=== PATIENT | male | born 1960 | race Caucasian/White ===

== ENCOUNTER 2024-05-19 19:39 | Inpatient (IN) | payer OTHER, SELFPAY ==
[2024-05-19] VITALS (7 sets, daily range): BP systolic 122–158; BP diastolic 91–117; BMI 29.0
--- NOTE | 2024-05-19 17:18 | ED.GENMED ---
History of Present Illness
General
Chief Complaint: Weakness
Source: patient
Time Seen by Provider: 05/19/24 17:04
History of Present Illness
History of Present Illness:
63-year-old male with no documented past medical history presenting the emergency department for evaluation at the request of primary care provider after patient had seen primary care yesterday noting that for the last few weeks he has had a
'terrible taste in his mouth' lower extremity edema, exertional dyspnea and decreased p.o. intake to both solids and liquids. Patient states that he had abnormal renal function despite not having history of this previously. who presented to
the ER with the patient also notes that patient had an elevated hemoglobin A1c of 9.6. Patient notes that he has not been experiencing polyuria or polydipsia due to the abnormal taste in his mouth. He does note about 3 or 4 weeks ago having
URI-like symptoms which all resolved after taking an antibiotic for 10 days. Of note, patient states that he takes Motrin/ibuprofen multiple times per week due to chronic left knee pain. Social history otherwise noncontributory.
Past History
Past History
ED Past Medical History: None
ED Past Surgical History: None
Social History
Tobacco: Non-smoker
Alcohol: None
Drug: None
Personal:
Living: with family
Review of Systems
Review of Systems
All Other Systems: ROS reviewed and negative except as documented in HPI and ROS
Phy Exam
Physical Exam
Physical Exam:
GENERAL: Alert , in no apparent distress
HEAD: NCAT
EYE: clear conjunctiva
NECK: Supple
ENT: o/p clr, mmm.
CARDIAC: Tachycardic rate and rhythm. no murmur .
LUNGS: Clear breath sounds bilaterally, no acute respiratory distress, no wheezes/rales/rhonchi
ABDOMEN: Soft, without focal tenderness, no r/g, no cvat
NEUROLOGICAL: Alert and oriented
SKIN: Warm and dry, skin intact.
MUSCULOSKELETAL: significant b/l ankle edema (L>R is baseline per patient), well perfused.
PSYCH: Normal and appropriate interaction.
Scores
Heart Failure Risk
Heart Failure Risk Score: Not Applicable
Heart Score for Chest Pain Patients
STEMI patient?: Not applicable
Withdrawal Assessment of Alcohol
Withdrawal Assessment Completed?: Not applicable
Course
Orders/Labs/Results
Orders:
Orders
05/19/24 17:16
Electrocardiogram (*1) Urgent
Reason for Study: Shortness of Breath
EKG- Treatment ONCE
05/19/24 17:17
CR Chest - 2 Views Urgent
Comment:
Reason For Exam: SOB
05/19/24 17:27
Complete Blood Count/With Diff Urgent
Comprehensive Metabolic Panel Urgent
Magnesium Urgent
NT-proBNP Urgent
Troponin I Urgent
05/19/24 17:41
Protein/Creat Ratio (Random) Urgent
Date Specimen was Collected: 05/19/24
Time Specimen was Collected: 17:38
Comment: ADD ON
Urinalysis Reflex To Culture Urgent
Date Specimen was Collected: 05/19/24
Time Specimen was Collected: 17:38
Urine Microscopic Reflex Cult Urgent
Urine Culture Urgent
MARY JO Source: U
Specimen Description:
Date Specimen was Collected: 05/19/24
Time Specimen was Collected: 17:38
05/19/24 18:18
Furosemide [Lasix] 40 mg IV NOW STA
05/19/24 18:42
Admit/Transfer Patient As Directed
Co-Sign Provider:
Level of Care: Inpatient admission
Assign to:: Telemetry
Physician / Group: john
Diagnosis: new onset CHF
Reason for Telemetry: Acute Heart Failure
Date to Stop Telemetry: 05/22/24
Time to Stop Telemetry: 11:00
Reason for Hospitalization: CHF
Expected length of stay greater than two midnights?: Yes
ELOS- Estimated Length of Stay in days: 3
I certify the patient meets the requirements for IP care: Yes
PRN Pain Medication Management As Directed
May give lesser potent ordered pain med per pt: Yes
preference::
Protocol:: Medication orders for pain may be administered in a
manner that supports deferring to patient preference
when the pt is:
- Requesting an ordered lesser potent pain medication.
Least to most potent pain medications are defined
as: acetaminophen < NSAID < tramadol < opioids
(morphine, oxycodone, hydromorphone).
- Requesting a lesser dose of the same medication IF
ORDERED.
- Requesting a less intrusive route of administration
if both routes are prescribed by the provider (PO <
IV).
05/19/24 18:43
Code Status As Directed
Resuscitation Status: Full Code
05/19/24 20:22
Dextrose 50%-Water [Dextrose 50% Syringe] 12.5 grams IV [id number] PRN
Glucagon [GlucaGen] 1 mg IM PRN PRN
Heparin 5,000 units SC Q12
05/19/24 20:22
Echo 2D MMode Color/Doppler Routine
Reason for Study: heart failure
CARDIOLOGY CONSULT Routine
Consulting Provider: Annalee Bright
Was physician already notified: Yes
Diabetes Management by Nurse Practitioner Routine
Consulting Provider: Opal Ortega
Was provider already notified?: Yes
HF DIETARY CONSULT Routine
HF EDUCATOR CONSULT Routine
Comment:
Activity As Directed
Activity Level: As Tolerated
Bedside Glucose Monitoring As Directed
Frequency: AC&HS
Additional Instructions:: Change to q6h if pt on TPN, tube feeding or not eating
Intake/ Output As Directed
Frequency: Per unit guidelines
Patient Education As Directed
Type: CHF folder
Comment: give on admission. Document in Interdisciplinary Education record
Sleep Apnea Assessment by RN As Directed
Comment:
Physician Instructions:
Vital Signs As Directed
Frequency: Other
Additional Instructions:: Q12 or per unit guidelines if more frequent.
Weight As Directed
Frequency: Daily
Type of Scale: Standing Scale
Comment: Daily morning weight. If unable to stand, use balanced bed scale.
Weight As Directed
Frequency: Once
Type of Scale: Standing Scale
Comment: Upon Admission. If unable to stand, use balanced bed scale.
Pulse Ox/cont/shift [RESP] Routine
Quantity: 1
Special Instructions: Daily pulse oximetry at rest. If greater than 92% at rest also obtain pulse oximetry
while ambulating as tolerated.
DX Deep Vein Thrombosis Video Routine
05/19/24 23:30
Troponin I Q6H
Comment: at admission & every 6 hours x 2 (3 total), ECG to be done with each level
05/20/24 05:30
Troponin I Q6H
Comment: at admission & every 6 hours x 2 (3 total), ECG to be done with each level
05/20/24 Breakfast
1800 calorie (15 carb) Diabetic
Fluid Restriction: 1200 mL/day (40 oz)
Diabetic Diet: Cholesterol Lowering
Basic Metabolic Panel IN AM
Cardiovascular Evaluation IN AM
Glycohemoglobin (HgbA1c) IN AM
Magnesium IN AM
TSH Reflex To Free T4 IN AM
05/20/24 07:30
Insulin Aspart Corrective Low [Novolog Flexpen-Low Resistance] See Protocol SC AC
05/20/24 08:00
Furosemide [Lasix] 40 mg IV BID AT 0800,1600
05/21/24 06:00
Basic Metabolic Panel IN AM
05/22/24 06:00
Basic Metabolic Panel IN AM
05/22/24 11:00
DC Protocol for Telemetry ONCE
Abnormal Lab Results
05/19/24 05/19/24
17:27 17:41
MCH 26.5 L pg
(27.0-31.0)
MPV 10.9 H fL
(7.4-10.4)
Lymphocytes % 16.1 L %
(20.5-51.1)
Carbon Dioxide 19 L mmol/L
(22-30)
Creatinine 1.8 H mg/dL
(0.7-1.3)
Glucose 172 H mg/dl
(70-99)
Total Bilirubin 2.6 H mg/dl
(0.2-1.3)
Troponin I 0.036 H* ng/ml
Urine Ketones 3+ A
(Negative)
Ur Occult Blood Reflex 4+ A
(Negative)
Urine RBC 30-40 A /HPF
(0-2)
Urine Bacteria (Reflex) Moderate A
(Negative)
Urine Albumin (Reflex) 3+ A
(Neg - Trace)
05/19/24 17:27
05/19/24 17:27
Vital Signs
Initial and Last Documented VS:
Initial Vital Signs
Temp Pulse Resp BP Pulse Ox
97.6 F 111 20 158/117 97
05/19/24 16:53 05/19/24 16:53 05/19/24 16:53 05/19/24 16:53 05/19/24 16:53
Last Documented Vital Signs
Temp Pulse Resp BP Pulse Ox
97.9 F 108 18 140/100 98
05/19/24 21:01 05/19/24 21:01 05/19/24 21:01 05/19/24 21:01 05/19/24 21:01
MDM/Problems Addressed
Differential Diagnosis Includes:
uncontrolled DM, uncontrolled HTN, SLOANE/CKD, medication side effect with NSAIDs, CHF
MDM/Problems Addressed:
63-year-old male presenting to the ER for evaluation at request of primary care provider after performing lab work yesterday which showed a creatinine of 2.02 and a hemoglobin A1c of 9.6 with patient noting over the last few weeks he has had
gradually worsening edema to his bilateral lower extremities and some exertional dyspnea. Patient takes frequent NSAIDs as well as based off of presentation likely has untreated hypertension and based off of the hemoglobin A1c untreated diabetes.
Will obtain further labs, urine, EKG. Anticipate need for admission for consultation with specialists. Workup pending.
*Radiology
Radiology exam reviewed: radiology read reviewed
*Pulse Oximetry
Patient hypoxic: no
*Cabinet Installer Interpretation
Rate: normal
Rhythm: sinus
*Critical Care Note
Total Time (30-74mins, 75-104mins- exclusive of procedures): Not Applicable
Patient Management
Discussion with other providers: Hospitalist
Escalation/DeEscalation of care consider admission/obs:
Hospitalist team to admit for new onset kidney dysfunction, hypertension and CHF. 40 mg Lasix IV ordered for diuresis.
ED Attending Note
-
Portions of this chart may have been created with voice recognition software.� Occasional wrong word or��sound alike� substitutions may have occurred due to the inherent limitations of voice recognition software.
Discharge Plan
Departure
Patient Disposition: Admit
Date of Disposition: 05/19/24
Time of Disposition: 18:17
Presentation/result/management discussed w/ accepting MD/DO: Hospitalist
Discharge Problem:
CHF (congestive heart failure), Kidney dysfunction, Hypertension, Elevated troponin
Interventions
Interventions:
*Risk Screen - Suicide Last Done: 05/19/24 20:25
*General Assessment Last Done: 05/19/24 17:48
*Neglect/Abuse Screening Last Done: 05/19/24 17:01
*ED- Fall Risk Assessment Last Done: 05/19/24 20:16
*ED COVID-19 Vaccine History Last Done: 05/19/24 20:25
*Nursing Disposition Last Done: 05/19/24 20:16
ED- Cardiac Assessment Last Done: 05/19/24 17:48
ED- Neurological Assessment Last Done: 05/19/24 17:48
ED- Pulmonary Assessment Last Done: 05/19/24 17:48
Discharge Date and Time
Discharge Date/Time: 05/19/24 20:17
[2024-05-19 17:44] LABS: % Basophils 0.6 % (0-2); % Eosinophils 4.5 % (0-6); % Immature Granulocytes 0.3 % (0-0.5); % Lymphocytes 16.1 % (20.5-51.1); % Monocytes 7.6 % (1.7-9.3); % Neutrophils 70.9 % (42.2-75.2); Absolute Basophils 0.1 10^3/uL (0-0.2); Absolute Eosinophils 0.4 10^3/uL (0-0.7); Absolute Lymphocytes 1.3 10^3/uL (1.2-3.4); Absolute Monocytes 0.6 10^3/uL (0.1-0.6); Absolute Neutrophils 5.5 10^3/uL (1.4-6.5); Hematocrit 46.9 % (39.0-52.0); Hemoglobin 15.5 g/dL (13.0-18.0); Mean Corpuscular Hgb 26.5 pg (27.0-31.0); Mean Corpuscular Volume 80.3 fL (80.0-94.0); Mean Platelet Volume 10.9 fL (7.4-10.4); Nucleated Red Blood Cells % 0 % (-); Platelet Count 193 10^3/uL (130-400); Red Blood Cell Count 5.84 10^6/uL (4.70-6.10); Red Cell Dist. Width 13.9 % (11.5-14.5); White Blood Cell Count 7.8 10^3/uL (4.8-10.8)
[2024-05-19 17:47] LABS: Urine Albumin 3+ (Neg - Trace); Urine Bilirubin Negative (Negative); Urine Character Clear (Clear); Urine Color Yellow; Urine Glucose Negative (Negative); Urine Ketone 3+ (Negative); Urine Leukocyte Negative (Negative); Urine Nitrite Negative (Negative); Urine Occult Blood 4+ (Negative); Urine Specific Gravity 1.025 (<1.030); Urine Urobilinogen Negative (Neg - 1+)
[2024-05-19 17:59] LABS: Urine Mucus Few
[2024-05-19 18:00] LABS: ALT (SGPT) 18 U/L (0-50); AST (SGOT) 25 U/L (17-59); Alkaline Phosphatase 62 U/L (38-126); Blood Urea Nitrogen 20 mg/dl (9-20); Calcium 9.6 mg/dl (8.4-10.2); Carbon Dioxide 19 mmol/L (22-30); Chloride 106 mmol/L (98-107); Glucose 172 mg/dl (70-99); Potassium 4.4 mmol/L (3.5-5.1); Sodium 139 mmol/L (135-145); Total Bilirubin 2.6 mg/dl (0.2-1.3); Total Protein 7.2 g/dl (6.3-8.2); eGFR 41.77
[2024-05-19 18:00] LABS: Urine Bacteria Moderate (Negative); Urine White Cell 0-2 /HPF (0-5)
[2024-05-19 18:01] LABS: Urine Red Blood Cell 30-40 /HPF (0-2)
[2024-05-19 18:15] LABS: NT-proBNP 16800 pg/ml; Troponin I 0.036 ng/ml
--- NOTE | 2024-05-19 18:20 | HPS.HSE ---
Family Physician
-
Family Physician: * NONE
Chief Complaint
-
sob
History of Present Illness
63-year-old male with no significant PMH presented with progressive worsening b/l LE edema, poor oral intake, urinary frequency with little output, poor oral intake due to bitterness in the mouth for more than one month. patient lost 26lbs in more
than an month. patient complained of sob which is worse with exertion. denied orthopnea. patient complained of congestion with cough. denied NEWMAN, dizzy or syncope.denied fever, chills. denied abdominal pain,n,v,d. denied dysuria or hematuria. he
contacted the online Physician, who ordered labs for the patient. his blood work as outpatient was abnormal and asked them to go to ER.
upon arrival he was tachycardic, elevated Blood pressure. trop elevated and BNP elevated. patient received a dose of Lasix in Er. admitting for further management.
Medical History
Past Medical History
Past Medical History: Reports None and Other
Past Surgical History: Reports None
Social History
Tobacco: Non-smoker
Alcohol: None
Drug: None
Personal:
Living: With Family
Family History
Family History: Not pertinent
Allergies / Home Medications
Allergies reflects when Allergies were last updated in [facility].
Home Medications with original date entered in [facility]
Allergy/Medication List:
Allergies
Allergy/AdvReac Type Severity Reaction Status Date / Time
shellfish derived Allergy Rash Verified 05/19/24 16:59
Home Medications
fluticasone propionate 50 mcg/actuation nasal spray,suspension 1 spray intranasal DAILYPRN PRN congestion 05/19/24
ibuprofen 125 mg-acetaminophen 250 mg tablet (Advil Dual Action) 1 tab PO Q8HPRN PRN mild pain/inflammation 05/19/24
Review of Systems
-
Constitutional: Reports Weight Loss and Fatigue
EENT: Reports No Symptoms
Respiratory: Reports Cough and Trouble Breathing
Cardiac: Reports No Symptoms
Abdomen/GI: Reports No Symptoms
: Reports Frequency and Other
Musculoskeletal: Reports No Symptoms and Edema (LE edema)
Skin: Reports No Symptoms
Neurological: Reports No Symptoms
Endocrine: Reports No Symptoms
Hematologic/Lymphatic: Reports No Symptoms
Psych: Reports No Symptoms
Physical Exam
Vital Signs
Vital Signs
Temp Pulse Resp BP Pulse Ox
97.6 F 111 20 158/117 97
05/19/24 16:53 05/19/24 16:53 05/19/24 16:53 05/19/24 16:53 05/19/24 16:53
Physical Exam
General: Well Developed, Well Nourished and No Apparent Distress
HEENT: NormoCephalic, Moist mucous membranes and Atraumatic
Respiratory: Clear
Cardiac: S1/S2 and Tachycardia; No Murmur or Rub
GI: Soft, Non Tender, Non Distended and Normal Bowel Sounds; No Organomegaly
Rectal: Deferred by Provider
Musculoskeletal: No Clubbing, No Cyanosis, No Edema and Other (LE edema)
Skin: No Rash
Neuro: AO x 3 and Nonfocal/grossly intact
Laboratory Results
-
05/19/24 17:27
05/19/24 17:27
Laboratory Results
Total Bilirubin 2.6 mg/dl (0.2-1.3) H 05/19/24 17:27
AST 25 U/L (17-59) 05/19/24 17:27
ALT 18 U/L (0-50) 05/19/24 17:27
Alkaline Phosphatase 62 U/L (38-126) 05/19/24 17:27
Troponin I 0.036 ng/ml H* 05/19/24 17:27
Data Reviewed
-
Lab Data: Labs Reviewed by me
Impression/Plan
-
# Bilateral lower extremities edema likely new onset CHF
-BNP 16 800
-IV Lasix continued
-Strict ZANDER
-Daily weight, fluid restriction
-Obtain echocardiogram
-Cardiology consulted
# Elevated troponin likely demand ischemia from CHF
-Trop 0.036
-EKG pending
-Continue to trend Trope
# Acute kidney disease/ non anion gap metabolic acidosis
-cr 1.8, co2 19, anion gap 14
-ctm
# Hypertensive emergency/tachycardia
-BP improved in ER
-obtain EKG
#type 2 DM
-outpatient a1c9.6
-sliding scale
-Farxiga
-CHO diet
#DVT prophylaxis
-heparin sq
#CODE status
-full code
--- NOTE | 2024-05-19 18:27 | W.PN.UPDATE ---
Addendum entered and electronically signed by Maria G Batista MD 05/19/24 19:09:
discussed briefly with Renal, will hold of on Farxiga for now. Patient will need to have established outpatient care to monitor labs closely.
Also discussed Hematuria, Proteinuria - patient will need outpatient Renal Referral
Addendum entered and electronically signed by Maria G Batista MD 05/19/24 18:55:
On exam patient is AAO x 3, conversant. CV: S1, S2, tachycardic. mildly tachypneic, + JVP; Chest: bibasilar rales, LE with 1+ pitting edema equal bilaterally
Original Note:
Update Note
Progress Note Update
This is an addendum to H&P written by TRAUMA SURGEON Tigist Colbert
I saw and examined the patient.
The TRAUMA SURGEON's note was reviewed and I agree with the note.
Comment:
Mr. Matty Monroe is a 63 yo man with hx newly diagnosed DM, essential HTN sent from PCP for further evaluation of lower extremity swelling and shortness of breath on exertion.
Triage VS: T 97.6, P 111, RR 20, BP 158/117, SpO2 97%
LABS: WBC 7.8, HG 15.5, PLT 193, Na 139, K+ 4.4, CO2 19, Cr 1.8, glucose 172, T. Bili 2.6, AST 25, ALT 18, Alk Phos 62, Troponin 0.036, BNP 16,800
Heart Failure unknown EF Acute Exacerbation
-new diagnosis
-Lasix 40mg IV x 1 ordered in the ER
-continue Lasix 40mg IV BID
-TTE
-cardiology consult
-strict I/O, daily weights
Newly Diagnosed DM
-F/U A1c
-patient not yet started on medications
-given HF and CKD will start Farxiga
-DM TRAUMA SURGEON consult
Essential HTN
-not on medications, monitor BP in-house
DVT PPx
76 minutes spent on patient care
[2024-05-19] MEDS: LASIX 40 MG IV (20:02)
[2024-05-19 20:30] LABS: Protein/creatinine Ratio 1.1; Urine Protein 290 mg/dl
[2024-05-19] MEDS: HEPARIN 5000 UNITS SC (20:42)
--- NOTE | 2024-05-19 21:10 | PTCARENOTE ---
Patient arrived from ED via stretcher. AAO x 4. BP elevated at 140/100, tachycardia in low 100s. Tele box # 18 applied--patient sinus tach on the monitor. Patient denies SOB and chest pain. OOB standby with no devices. +2 pitting edema in bilateral
lower extremities. Dual skin check completed--skin CDI. Patient oriented to the room. Family retrieved from waiting room. Bed in lowest position. Call carpenter and personal belongings within reach.
[2024-05-19 21:18] LABS: Glucose - Point of Care 126 mg/dl (70-99)
[2024-05-20 02:51] VITALS: BP 110/77
[2024-05-20 05:24] VITALS: BMI 29.1
[2024-05-20 06:56] LABS: Blood Urea Nitrogen 20 mg/dl (9-20); Calcium 9.6 mg/dl (8.4-10.2); Carbon Dioxide 20 mmol/L (22-30); Chloride 103 mmol/L (98-107); Estimated Creatinine Clearance 39 ml/min; Glucose 115 mg/dl (70-99); HDL Cholesterol 56 mg/dl; LDL Cholesterol, Calculated 108 mg/dl; Potassium 4.2 mmol/L (3.5-5.1); Sodium 139 mmol/L (135-145); Total Cholesterol 182 mg/dl (50-199); Triglyceride 91 mg/dl (10-149); Very Low Density Lipoprotein 18 mg/dl (0-30); eGFR 39.15
--- NOTE | 2024-05-20 07:17 | W.PN.HOSP.TC ---
Today's Communication/Plan
-
Blood Pressure Control
Diuresis
PT eval
monitor renal function
Glycemic control
Assessment / Plan
Assessment / Plan
Physical Exam
General: No acute distress, appears comfortable at this time.
HEENT: NormoCephalic, Moist mucous membranes and Atraumatic
Respiratory: Clear
Cardiac: S1/S2 and Tachycardia; No Murmur or Rub
GI: Soft, Non Tender, Non Distended and Normal Bowel Sounds; No Organomegaly
Musculoskeletal: No Clubbing, No Cyanosis, No Edema
Skin: No Rash
Neuro: AO x 3 conversant coherent
63M no significant pmhx though hasn't followed w/ a pcp in years here for new dx CHF DM and possible SLOANE vs CKD.
# HFrEF
-BNP 16 800
-IV Lasix continued
-Strict ZANDER, Daily weight, fluid restriction
-ECHO appreciated EF 20-25% mild mod MR
-Cardiology consult appreciated
# Elevated troponin, suspect NSTEMI type II
EKG appreciated
Chest Pain Free
Trended to peak 0.045
# SLOANE vs CKD
Cr 1.8 on admission
monitor renal function
# Hypertensive Urgency/tachycardia
-cont Lasix Coreg
-monitor and titrate antihypertensive regimen as tolerated
#type 2 DM
-outpatient a1c 9.6
-sliding scale
-CHO diet
-DM BELT SPLICER eval appreciated
#DVT prophylaxis
-heparin sq
#CODE status
-full code
I spent a total of 50 minutes with the patient or on the floor. More than 50% of this time involved counseling and coordination of care.
Anticipated Discharge: 24 - 48 hours
Subjective/Interval History
-
Date of Service: May 20, 2024
No acute distress sitting up comfortably in bed stable respiratory status on room air. Reports feeling well. Denies new acute issues
Objective Data
-
Labs:
Laboratory Results
05/20/24
05:41
Sodium 139
Potassium 4.2
Chloride 103
Carbon Dioxide 20 L
BUN 20
Creatinine 1.9 H
Glucose 115 H
Calcium 9.6
Vital Signs:
Vital Signs
Temp Pulse Resp BP Pulse Ox
98.6 F 100 18 110/77 95
05/20/24 02:51 05/20/24 02:51 05/20/24 02:51 05/20/24 02:51 05/20/24 02:51
I&O
05/19/24 05/20/24 05/21/24
06:59 06:59 06:59
Intake Total 220 / 220
Balance 220 / 220
[2024-05-20 07:22] LABS: Troponin I 0.045 ng/ml
[2024-05-20 07:23] LABS: Glucose - Point of Care 110 mg/dl (70-99)
[2024-05-20 07:24] LABS: TSH Reflex To Free T4 2.56 uIU/ml (0.47-4.68)
--- NOTE | 2024-05-20 07:25 | PN.DE.MGMTRT ---
Insulin Management
- -
05/20/2024 Diabetes Management Consult
Patient admitted 05/19 with c/o weakness, bilateral leg edema, bitter taste in mouth, urinary frequency. New CHF and new onset type 2 diabetes. PMH essential HTN. Taking no medications prior to admission, A1C 9.6, cr 1.9, eGFR 39.15.
Patient is awake alert, pleasant and conversant, able to discuss plan for diabetes care. States diabetes was just diagnosed yesterday he has no idea what to do. Reassured patient Diabetes Nurse Educator would provide glucose monitor and instruct
on testing procedure. Explained that due to kidney function would not start oral medication at this time. He verbalized understanding.
Currently ordered low corrective insulin. Glucose range 172 to 115. Due to renal status, cr 1.9, eGFR 39.15, will not start oral medications. Will follow glucose trend for need for AC novolog and lantus.
Diabetes Education Consult ordered.
Discussed with nurse.
Diabetes History
- -
Type of Diabetes: 2
Pre-Admission Diabetes Regimen
05/19/24 05/20/24
17:27 05:41
Creatinine 1.8 H 1.9 H
Insulin Pump Settings
IP Diabetes Regimen
05/19/24 05/19/24 05/20/24
17:27 21:13 05:41
Glucose 172 H 115 H
POC Glucose 126 H
05/20/24
07:21
Glucose
POC Glucose 110 H
Patient Education
--- NOTE | 2024-05-20 08:00 | CARDSERVLU ---
Echocardiogram with Lumason completed after protocol screening completed. Allergies verified.
Patent IV site: __R AC___
IV site flushed with 0.9% NaCl pre and post administration.
Diluted bolus method utilized to enhance visualization of ventricular camara.
Total volume given: __2.5__ mL
Patient tolerated all procedures well without complications.
[2024-05-20 08:13] LABS: Glycohemoglobin (HgbA1c) 9.3 % (4.0-5.6)
[2024-05-20 08:34] VITALS: BP 139/101
[2024-05-20] MEDS: LASIX 40 MG IV ×2 (08:35→15:41)
[2024-05-20] MEDS: NOVOLOG FLEXPEN-LOW RESISTANCE SC ×2 (08:35→17:08)
[2024-05-20] MEDS: HEPARIN 5000 UNITS SC ×2 (08:37→20:35)
--- NOTE | 2024-05-20 11:02 | CON.CAR ---
Addendum entered and electronically signed by Latha Malloy DO 05/20/24 17:54:
I saw and examined the patient.
The Supervisor Scouring Pads's note was reviewed and I agree with the note.
Comment: Patient was seen and examined. Chart/telemetry and studies reviewed. Patient is a 63-year-old male with past medical history of joint pains who does not follow regularly with doctors. He reports about 2 to 3 weeks ago he noted congestion
and lower extremity swelling. He was evaluated by an online physician and was prescribed amoxicillin. He reports this improved his symptoms of congestion. He then states he developed the feeling of dry mouth with altered taste, stating nothing
tasted good. He then had another appointment with online physician and blood work was ordered. Based on this blood work patient was asked to go to the ER for further evaluation. On arrival patient noted to be in acute heart failure, with renal
dysfunction, elevated troponin, and new diagnosis diabetes. He denies chest discomfort, palpitations, lightheadedness/dizziness. Cardiology consulted for evaluation. Overall he is feeling better with IV lasix with improved shortness of breath and
edema and is anxious to return home however understands that he is not medically ready with workup ongoing.
General: No acute distress, AAOX3
Heart: Regular, positive S1/S2, 1/6 SM
Lungs: CTA b/l, negative wheezes/rales/rhonchi
Abd: Positive BS, NT/ND, neg rebound/rigidity/guarding
Ext: + edema
Neuro: nonfocal
Plan:
Acute HFrEF, new diagnosis
-2D echocardiogram today reviewed with biventricular dilatation and hypokinesis. Left ventricular systolic function severely reduced with ejection fraction estimated by volumetric assessment 25%. No left ventricular apical thrombus. Mild to
moderate mitral regurgitation. Mild tricuspid regurgitation. Estimated pulmonary artery pressure 41-46 mmHg.
-proBNP 98186
-chest x-ray with evidence of elevated pulmonary venous pressures
-Continue IV Lasix
-Will need further workup of cardiomyopathy: Given elevated troponin would ideally prefer left heart catheterization if renal function allows.
-Denies alcohol use; TSH normal, 2.56
-Add aspirin 81 mg daily
-Add Lipitor 20 mg nightly for goal LDL ideally less than 70 mg/dL pending ischemic evaluation
-Add Coreg 3.215 mg twice daily
-Monitor renal function closely with diuresis; unknown baseline creatinine
-Will check renal ultrasound
-Eventual addition of LUL/ARB or Entresto in addition to SGLT2 inhibitor pending renal function
-CHF education
New diagnosis of type 2 diabetes mellitus with hemoglobin A1c 9.3%
-Diabetic nurse practitioner consult. Diabetic education
-Goal normoglycemia
Renal insufficiency, unknown baseline creatinine
-Will follow closely with diuresis
-May need outpatient nephrology follow-up
Original Note:
Consultation
Consultation Request
Date/Time Consultation Performed: 05/20/24
Requesting Provider: Dr. Stevens
Performing Provider: Dora Guevara PA-C for Dr. Malloy
Reason for Consultation: CHF
Medical History
-
Chief Complaint: abnormal OP bloodwork
History of Present Illness:
Patient is a 63-year-old male with past medical history of joint pains who does not follow regularly with doctors. He reports about 2 to 3 weeks ago he noted congestion and lower extremity swelling. He was evaluated by an online physician and was
prescribed amoxicillin. He reports this improved his symptoms of congestion. He then states he developed the feeling of dry mouth with altered taste, stating nothing tasted good. He then had another appointment with online physician and blood
work was ordered. Based on this blood work patient was asked to go to the ER for further evaluation. On arrival patient noted to be in acute heart failure, with renal dysfunction, elevated troponin, and new diagnosis diabetes. He denies chest
discomfort, palpitations, lightheadedness/dizziness. Cardiology consulted for evaluation.
PMH:
OA/Joint pains
Past Medical History
Past Medical History: Other (in HPI)
Social History
Tobacco: Non-Smoker
Alcohol: None
Personal:
Living: With Family
Employment: Employed
Family History
Family History: Cancer
Allergies / Home Medications
Allergy/AdvReac Type Severity Reaction Status Date / Time
shellfish derived Allergy Rash-itchin Verified 05/19/24 20:24
g
�Medication �Instructions �Recorded �Confirmed �Type
fluticasone propionate 50 1 spray intranasal DAILYPRN PRN 05/19/24 05/19/24 History
mcg/actuation nasal congestion
spray,suspension
ibuprofen 125 mg-acetaminophen 250 1 tab PO Q8HPRN PRN mild 05/19/24 05/19/24 History
mg tablet (Advil Dual Action) pain/inflammation
Review of Systems
-
History Source: Patient
All other systems: Negative unless noted
Physical Exam
Vital Signs
Temp Pulse Resp BP Pulse Ox
97.6 F 105 18 139/101 96
05/20/24 08:34 05/20/24 08:34 05/20/24 08:34 05/20/24 08:34 05/20/24 08:34
Lab Results
05/19/24 17:27
05/20/24 05:41
Troponin I 0.045 ng/ml H* 05/20/24 05:41
Som-J-Yvcgbxglxil Pept 21276 pg/ml 05/19/24 17:27
Physical Exam
General: No Apparent Distress and Comfortable
HEENT: Normocephalic, Anicteric and Moist Mucous Membranes
Respiratory: Crackles and Non Labored Respirations
Cardiac: S1/S2, Regular Rhythm and Other (tachy)
GI: Soft, Non Tender, Non Distended and Normal Bowel Sounds
Musculoskeletal: No Clubbing, No Cyanosis and Edema (1+ edema of B/L LE)
Skin: Warm and Dry
Neuro: AO x 3
Impression / Plan
-
Primary Vault Cashier: none
Assessment:
Presentation due to abnormal blood work
Acute CHF, unknown type
SLOANE, baseline renal function unknown
Elevated troponin
New diabetes type 2
OA/Joint pains
ECHO 05/20/24: pending
Plan:
-Patient without known significant past medical history presents with complaints of altered taste, congestion, lower extremity edema
-proBNP 16,800 and chest x-ray with evidence of elevated pulmonary venous pressures. continue IV lasix. dry weight unknown
-follow Cr with diuresis
-CHF education
-check echo
-check TSH
-trops elevated 0.04. no CP. may consider for inpatient vs OP ischemic evaluation pending results of echo. add asa
-LDL 108. add lipitor 20mg QPM. LDL goal <70 given diabetes
-will add toprol 25mg daily. in ST on review of tele
-hgbA1c 9.3%, new diabetic. DM education.
Data Reviewed
-
EKG: Tracing Personally Visualized and interpreted
Radiology: Report Reviewed by me
Labs: Labs Reviewed by me
Old Records: Reviewed
[2024-05-20] MEDS: TOPROL XL 25 MG PO (12:28)
[2024-05-20] MEDS: LOW STRENGTH ASPIRIN 81 MG PO (12:28)
[2024-05-20 12:46] LABS: Glucose - Point of Care 164 mg/dl (70-99)
[2024-05-20] MEDS: NOVOLOG FLEXPEN-LOW RESISTANCE 1 UNITS SC (12:47)
[2024-05-20 13:34] LABS: Troponin I 0.042 ng/ml
--- NOTE | 2024-05-20 13:46 | CM ---
manager rn reviewed patient's chart and met with patient and patient lives with spouse in a 2 story home, patient is independent with adl's and ambulation, no dme, patient drives. Home when stable.
PCP; None
Pharmacy: [facility]
Plan; Home no needs, patient has no PCP, bilingual case manager encouraged patient to reach out and pick a PCP.
[2024-05-20 13:56] VITALS: BP 128/82; BP 139/104; PULSE 99; O2SAT 99
--- NOTE | 2024-05-20 14:33 | PTCARENOTE ---
05/20/2024 DIABETES EDUCATION
I met with Matty review diabetes management, he is unsure on type of DM or medications administered.
He currently does not have health insurance, states he has spoken to and is working with for insurance under her plan.
I educated on physiology of T2D, managing with medications, monitoring BG, nutrition, activity, sleep and managing stress.
I educated and reviewed using Contour Next glucometer, member acknowledged understanding with a self demonstration of checking BS.
Discussed normal target glucose ranges and a monitoring schedule as instructed on discharge plans. I reinforced signs of hyperglycemia, hypoglycemia; BS parameters and recommended HbA1c goals, written material provided. Encouraged patient to
follow up with his PCP for post d/c appointment and to monitor medication and blood glucose levels. Educated on clinic for uninsured and [facility] for OTC diabetic testing supplies if needed. Requested prescription sent to pharmacy for test
strips and lancets for back up SMBG. Information provided on the outpatient DSME program. Patient verbalized understanding.
[2024-05-20 15:04] VITALS: BP 106/79
[2024-05-20 16:49] LABS: Glucose - Point of Care 143 mg/dl (70-99)
[2024-05-20] MEDS: LIPITOR 20 MG PO ×2 (17:09)
[2024-05-20 17:43] VITALS: BMI 29.1
[2024-05-20 20:25] VITALS: BP 131/90
[2024-05-20 21:16] LABS: Glucose - Point of Care 180 mg/dl (70-99)
[2024-05-20 23:44] VITALS: BP 127/80
[2024-05-21] VITALS (13 sets, daily range): BP systolic 103–136; BP diastolic 72–98; BMI 27.9
--- NOTE | 2024-05-21 07:25 | W.PN.HOSP.TC ---
Today's Communication/Plan
-
Cont diuresis ASA statin Coreg as per Cardio
glycemic control
discharge planning
Assessment / Plan
Assessment / Plan
Physical Exam
General: No acute distress, appears comfortable at this time.
HEENT: NormoCephalic, Moist mucous membranes and Atraumatic
Respiratory: Clear
Cardiac: S1/S2 and Tachycardia; No Murmur or Rub
GI: Soft, Non Tender, Non Distended and Normal Bowel Sounds; No Organomegaly
Musculoskeletal: No Clubbing, No Cyanosis, No Edema
Skin: No Rash
Neuro: AO x 3 conversant coherent
63M no significant pmhx though hasn't followed w/ a pcp in years here for new dx CHF DM and possible SLOANE vs CKD.
# HFrEF
-BNP 16 800
-IV Lasix continued
-Strict ZANDER, Daily weight, fluid restriction
-ECHO appreciated EF 20-25% mild mod MR
-Cardiology consult appreciated ASA Statin Coreg
-Cath report appreciated non-obstructive coronary artery disease
# Elevated troponin, non-ischemic myocardial injury
EKG appreciated
Chest Pain Free
Trended to peak 0.045
# SLOANE vs CKD
Cr 1.8 on admission
monitor renal function
# Hypertensive Urgency/tachycardia
-cont Lasix Coreg
-monitor and titrate antihypertensive regimen as tolerated
#type 2 DM
-outpatient a1c 9.6
-sliding scale
-CHO diet
-DM HEAD OF DATA eval appreciated
#Occult Hematuria
no urinary symptoms, urine cx neg
outpt Urology follow up recommended
#DVT prophylaxis
-heparin sq
#CODE status
-full code
I spent a total of 40 minutes with the patient or on the floor. More than 50% of this time involved counseling and coordination of care.
Anticipated Discharge: 24 - 48 hours
Subjective/Interval History
-
Date of Service: May 21, 2024
no acute distress appears comfortable at this time sitting up in bed. Status post cath. Denies pain.
Objective Data
-
Labs:
Laboratory Results
05/21/24
07:14
WBC Pending
Hgb Pending
Hct Pending
Plt Count Pending
Sodium Pending
Potassium Pending
Chloride Pending
Carbon Dioxide Pending
BUN Pending
Creatinine Pending
Glucose Pending
Calcium Pending
Vital Signs:
Vital Signs
Temp Pulse Resp BP Pulse Ox
98.0 F 100 18 136/93 97
05/21/24 03:41 05/21/24 03:41 05/21/24 03:41 05/21/24 03:41 05/21/24 03:41
I&O
05/20/24 05/21/24 05/22/24
06:59 06:59 06:59
Intake Total 220 / 220 600 / 600
Output Total 1999 / 1999
Balance 220 / 220 -1400 / -1400
[2024-05-21 07:40] LABS: Hematocrit 49.6 % (39.0-52.0); Hemoglobin 16.5 g/dL (13.0-18.0); Mean Corp Hgb Conc. 33.3 g/dL (33.0-37.0); Mean Corpuscular Hgb 26.5 pg (27.0-31.0); Mean Corpuscular Volume 79.6 fL (80.0-94.0); Mean Platelet Volume 11.4 fL (7.4-10.4); Platelet Count 220 10^3/uL (130-400); Red Blood Cell Count 6.23 10^6/uL (4.70-6.10); Red Cell Dist. Width 13.6 % (11.5-14.5); White Blood Cell Count 7.4 10^3/uL (4.8-10.8)
[2024-05-21 07:52] LABS: Glucose - Point of Care 123 mg/dl (70-99)
--- NOTE | 2024-05-21 08:19 | PN.DE.MGMTRT ---
Insulin Management
- -
05/21/2024: Diabetes Management Follow up
Patient admitted 05/19 with c/o weakness, bilateral leg edema, bitter taste in mouth, urinary frequency. New CHF and new onset type 2 diabetes. PMH essential HTN. Taking no medications prior to admission, A1C 9.6, cr 1.9, eGFR 39.15. States
diabetes was just diagnosed yesterday he has no idea what to do. Reassured patient Diabetes Nurse Educator would provide glucose monitor and instruct on testing procedure. Explained that due to kidney function would not start oral medication at
this time. He verbalized understanding.
Patient is awake alert, pleasant and conversant, standing up in room, able to discuss plan for diabetes care.
05/20 premeal Glucose range 110 to 163, required 1 unit of corrective insulin at lunch time only, otherwise, glucose stable an in range.
Currently ordered low corrective insulin while NPO for renal US.
Pt is not a candidate for oral medications at this time due to renal status, with a Cr 1.9, eGFR 39.15.
Discussed with pt that he will be started on insulin therapy in the likelihood that his blood sugars trend up to >180.
Will follow glucose trend and assess need for AC NovoLog and Lantus.
Pt was seen by Diabetes Nurse Educator for glucose monitor instructions, pt stated he has no insurance and could not afford the contour next monitor supplies, pt was instructed to go to [facility] for [employer] brand meter. Discussed with nurse.
Diabetes History
- -
Type of Diabetes: 2 requiring insulin
Pre-Admission Diabetes Regimen
Lab Results
Hemoglobin A1c 9.3 % (4.0-5.6) H 05/20/24 05:41
Insulin Pump Settings
IP Diabetes Regimen
05/20/24 05/20/24 05/20/24
12:44 16:46 21:10
POC Glucose 164 H 143 H 180 H
05/21/24
07:50
POC Glucose 123 H
Meal type: Lunch
Amount consumed: 100%
Patient Education
[2024-05-21 08:20] LABS: Blood Urea Nitrogen 23 mg/dl (9-20); Calcium 9.8 mg/dl (8.4-10.2); Carbon Dioxide 27 mmol/L (22-30); Chloride 96 mmol/L (98-107); Estimated Creatinine Clearance 39 ml/min; Glucose 130 mg/dl (70-99); Magnesium 1.8 mg/dl (1.6-2.3); Phosphorus 4.3 mg/dl (2.5-4.5); Sodium 137 mmol/L (135-145); eGFR 39.15
[2024-05-21] MEDS: NOVOLOG FLEXPEN-LOW RESISTANCE SC ×3 (08:30→16:53)
[2024-05-21] MEDS: COREG 3.125 MG PO ×2 (08:31→20:06)
[2024-05-21] MEDS: LOW STRENGTH ASPIRIN 81 MG PO (08:31)
[2024-05-21] MEDS: HEPARIN 5000 UNITS SC ×2 (08:32→20:06)
[2024-05-21] MEDS: LASIX 40 MG IV ×2 (08:32→15:27)
--- NOTE | 2024-05-21 10:44 | CM ---
human resources compliance manager received a consult for pricing for Entresto and Farxiga, case operator reached out to [facility] patient's physician and patient has no prescription insurance plan, or insurance. Cardiology made aware, [facility]
Plan; Home with spouse when stable.
[2024-05-21 11:25] LABS: Glucose - Point of Care 227 mg/dl (70-99)
--- NOTE | 2024-05-21 11:42 | W.PN.CARDCBS ---
Addendum entered and electronically signed by Dora Guevara PA-C 05/21/24 14:13:
urine noted to have 4+ occult blood. hgb stable. urine culture without growth. will need work up.
Addendum entered and electronically signed by Latha Malloy DO 05/21/24 11:59:
I saw and examined the patient.
The Meter Technician's note was reviewed and I agree with the note.
Comment: Patient seen and examined today. No chest pain or pressure with improved shortness of breath and edema and anxious for discharge. Discussed case with interventional cardiology and plan for diagnostic right/left heart cath today
General: No acute distress, AAOX3
Heart: Regular, positive S1/S2, No murmur
Lungs: CTA b/l, negative wheezes/rales/rhonchi
Abd: Positive BS, NT/ND, neg rebound/rigidity/guarding
Ext: trace edema
Neuro: nonfocal
Plan:
Acute HFrEF, new diagnosis
-2D echocardiogram today reviewed with biventricular dilatation and hypokinesis. Left ventricular systolic function severely reduced with ejection fraction estimated by volumetric assessment 25%. No left ventricular apical thrombus. Mild to
moderate mitral regurgitation. Mild tricuspid regurgitation. Estimated pulmonary artery pressure 41-46 mmHg.
-proBNP 51809
-chest x-ray with evidence of elevated pulmonary venous pressures
-Continue IV Lasix
-Will need further workup of cardiomyopathy: L/RHC today (diagnostic, patient aware)
-Denies alcohol use; TSH normal, 2.56
-Added aspirin 81 mg daily
-Added Lipitor 20 mg nightly for goal LDL ideally less than 70 mg/dL pending ischemic evaluation
-Added Coreg 3.215 mg twice daily
-Optimization of goal-directed medical therapy for cardiomyopathy may be limited as he is uninsured
-Eventual addition of LUL/ARB or Entresto in addition to SGLT2 inhibitor pending renal function and cost
-CHF education
New diagnosis of type 2 diabetes mellitus with hemoglobin A1c 9.3%
-Diabetic nurse practitioner consult. Diabetic education
-Goal normoglycemia
Renal insufficiency, unknown baseline creatinine
-Monitor renal function closely with diuresis; unknown baseline creatinine
-Will check renal ultrasound
-May need outpatient nephrology follow-up
Original Note:
Today's Communication / Plan
-
Right and diagnostic left heart cath today
Continue diuresis
GDMT of cardiomyopathy as able, limited by uninsured status
Treatment of diabetes per primary service
Impression / Plan
-
Primary Lithographic Camera Operator: none
Assessment:
Presentation due to abnormal blood work
Acute CHF, unknown type
SLOANE, baseline renal function unknown
Elevated troponin
New diabetes type 2
OA/Joint pains
ECHO 05/20/24: EF 20 to 25%,, no evidence of LV thrombus, stage III diastolic dysfunction, dilated and hypokinetic right ventricle, biatrial dilatation, mild to moderate MR, trace AR, mild TR, PAP 41 to 46 mmHg, proximal ascending aorta mildly dilated
Plan:
-Patient without known significant past medical history presents with complaints of altered taste, congestion, lower extremity edema
-Continue diuresis with IV Lasix. Dry weight unknown. Creatinine stable at 1.9, baseline unknown. Suspect degree of chronic kidney disease given new diabetes
-CHF education
-Reviewed results of echocardiogram with patient, EF 20 to 25%. Trop peaked at 0.04. Discussed need for cardiac catheterization this admission. He is concerned about staying till Friday for cath as he is afraid he will lose his job. He feels he
is able to lay flat today. Last ate around 9 AM. Will plan for right heart cath and diagnostic left heart cath today
-Continue statin, aspirin, coreg added this admission
-Patient uninsured. Will not be able to afford Entresto or SGLT2 inhibitor, and not candidate at present given renal insufficiency.
-consider addition of hydralazine/nitrates, but await cath results
-Hemoglobin A1c 9.3%. Diabetic education.
-TSH within normal limits
-Discussed with nursing
Progress Note - Lithographic Camera Operator
Subjective
Date of Service: May 21, 2024
Feeling well. No shortness of breath or chest discomfort
Objective
Labs:
05/21/24 07:14
05/21/24 07:14
Labs
Hgb 16.5 g/dL (13.0-18.0) 05/21/24 07:14
Hct 49.6 % (39.0-52.0) 05/21/24 07:14
Plt Count 220 10^3/uL (130-400) 05/21/24 07:14
Sodium 137 mmol/L (135-145) 05/21/24 07:14
Potassium 4.0 mmol/L (3.5-5.1) 05/21/24 07:14
BUN 23 mg/dl (9-20) H 05/21/24 07:14
Creatinine 1.9 mg/dL (0.7-1.3) H 05/21/24 07:14
Glucose 130 mg/dl (70-99) H 05/21/24 07:14
Troponins
05/19/24 05/19/24 05/20/24
17:27 23:29 05:41
Troponin I 0.036 H* 0.040 H* 0.045 H*
05/20/24
12:45
Troponin I 0.042 H*
Vital Signs and I&O:
Vital Signs
Temp Pulse Resp BP Pulse Ox
97.7 F 103 18 118/86 96
05/21/24 11:30 05/21/24 11:30 05/21/24 11:30 05/21/24 11:30 05/21/24 11:30
Vital Signs
Temp Pulse Resp BP Pulse Ox
97.7 F 103 18 118/86 96
05/21/24 11:30 05/21/24 11:30 05/21/24 11:30 05/21/24 11:30 05/21/24 11:30
Intake & Output
05/19/24 05/20/24 05/21/24 05/22/24
07:59 07:59 07:59 07:59
Intake Total 220 / 220 600 / 600 300 / 300
Output Total 1999 / 1999
Balance 220 / 220 -1400 / -1400 300 / 300
Physical Exam
Physical Exam
GEN: No distress, awake, alert, oriented x3
HEENT: supple, anicteric, mmm, EOMI
LUNGS: CTA bilaterally, no wheezes/rales
CV: Reg, S1/S2, 1/6 syst LSB, no murmur
ABD: soft, BS+, NT/ND
EXT: No cyanosis, clubbing. Trace edema of bilateral lower extremity
NEURO: Gross non-focal
SKIN: Warm, pink, dry. No rash
--- NOTE | 2024-05-21 12:37 | PTOTSP ---
pt currently requires no assistance to complete simple ADLs, functional transfers, ambulation. education provided regarding CHF and increase activity. no acute OT needs identified at this time, will sign off.
--- NOTE | 2024-05-21 15:17 | PTCARENOTE ---
patient arrived to unit. VSS. Patient AAOx4. R band intact. will continue to monitor.
[2024-05-21 16:52] LABS: Glucose - Point of Care 147 mg/dl (70-99)
--- NOTE | 2024-05-21 17:26 | ITS.CL.CATH ---
[facility] - Catheterization
Cardiac Catheterization
Procedure Report:
LEFT AND RIGHT HEART CATHETERIZATION
Date of Procedure: May 21, 2024
Referring: Mohsen Ortiz
PROCEDURES:
1. Left heart catheterization, coronary angiogram.
2. Right heart catheterization.
3. Ultrasound-guided access.
INDICATION: New severe cardiomyopathy with LVEF of 20 to 25%
ACCESS:
1. Right radial artery, 6 Azerbaijani sheath, under ultrasound guidance.
2. Right brachial vein, 6 Azerbaijani sheath, under ultrasound guidance.
Ultrasound was utilized for vascular access. The radial artery was visualized under ultrasound, and the vessel was patent and pulsatile. An image was stored permanently in the patient's medical record. Under direct ultrasound guidance, a 6 Azerbaijani
sheath was inserted into the artery using a micropuncture kit through a modified Seldinger technique.
HEMODYNAMICS : (mmHg)
RA (m) : 4
RV (s/d,m) : 22/3, 6
PA (s/d, m) : 24/15, 19
PCWP (m) : 11
PA saturation: 64.2% on room air
AO saturation: 88.1% on room air
RA saturation: 61.0% on room air
Cardiac Output : 4.8 L/min
Cardiac Index : 2.47 L/min/m-2
Systemic vascular resistance: 1399 dsc^(-5)
Pulmonary vascular resistance: 1.85 velez unit
AO (s/d) : 106/70
LV (s/d) : 102/3
LVEDP : 10
CORONARY FINDINGS
DOMINANCE: Codominant
LEFT MAIN: The left main artery is a large-caliber vessel which utilize to the left anterior descending artery and the left circumflex artery. There is minimal luminal irregularities.
LEFT ANTERIOR DESCENDING: The left anterior descending artery is a large-caliber vessel which gives rise to 2 major diagonal branches as it courses to the anterior interventricular groove and wraps around the apex. Proximal LAD has diffuse 30 to
40% stenosis.
CIRCUMFLEX: The left circumflex artery is a medium to large caliber, codominant vessel which gives rise to 2 major obtuse marginal branches and a left PDA. OM 2 has a focal 50 to 60% stenosis with small branch disease which is out of proportion to
explain his cardiomyopathy. Distal circumflex proximal to the RPDA takeoff has 2 serial 30 to 40% focal stenoses.
RIGHT CORONARY ARTERY: The right coronary artery is a large caliber dominant vessel, which is ectatic and gives rise to the right posterior descending artery and the right posterolateral system. There is mild diffuse atherosclerotic plaque. RPDA
in the midportion has smooth 30 to 40% stenosis.
SEDATION: 48 minutes of procedural sedation was utilized. An independent medical associate was present to assist with and help manage the patient's level of consciousness and physiologic status.
RADIATION SUMMARY: Fluoro Time (min): 2.0, Dose (mGy): 239, DAP (Gy.cm2) : 18
Closure Device: Vascular band over right radial artery, 10 cc of air. Manual pressure was held over the right brachial venous access site with successful hemostasis.
CONCLUSIONS
1. Non-obstructive coronary artery disease.
2. Normal invasive hemodynamics with normal cardiac output.
RECOMMENDATIONS
1. Optimization of goal-directed medical therapy for nonischemic cardiomyopathy.
2. Aggressive management of cardiovascular risk factors.
3. Wean radial band per protocol.
4. Eventual referral for outpatient cardiac rehab.
Copy to: Mohsen Ortiz
Mitzy Nayak MD, FACC, [facility]
[2024-05-21] MEDS: LIPITOR 20 MG PO (18:08)
[2024-05-21 21:02] LABS: Glucose - Point of Care 169 mg/dl (70-99)
[2024-05-22 00:04] VITALS: BP 121/75
[2024-05-22 03:05] VITALS: BP 121/94
[2024-05-22 05:30] VITALS: BMI 27.5
[2024-05-22 07:05] LABS: Hematocrit 48.7 % (39.0-52.0); Hemoglobin 16.1 g/dL (13.0-18.0); Mean Corp Hgb Conc. 33.1 g/dL (33.0-37.0); Mean Corpuscular Hgb 26.1 pg (27.0-31.0); Mean Corpuscular Volume 78.9 fL (80.0-94.0); Mean Platelet Volume 11.2 fL (7.4-10.4); Platelet Count 216 10^3/uL (130-400); Red Blood Cell Count 6.17 10^6/uL (4.70-6.10); Red Cell Dist. Width 13.5 % (11.5-14.5); White Blood Cell Count 7.1 10^3/uL (4.8-10.8)
--- NOTE | 2024-05-22 07:05 | W.PN.HOSP.TC ---
Today's Communication/Plan
-
discharge
Assessment / Plan
Assessment / Plan
Physical Exam
General: No acute distress, appears comfortable at this time.
HEENT: NormoCephalic, Moist mucous membranes and Atraumatic
Respiratory: Clear
Cardiac: S1/S2 and Tachycardia; No Murmur or Rub
GI: Soft, Non Tender, Non Distended and Normal Bowel Sounds; No Organomegaly
Musculoskeletal: No Clubbing, No Cyanosis, No Edema
Skin: No Rash
Neuro: AO x 3 conversant coherent
63M no significant pmhx though hasn't followed w/ a pcp in years here for new dx CHF DM and possible SLOANE vs CKD.
# HFrEF
-BNP 16 800
-Strict ZANDER, Daily weight, fluid restriction
-ECHO appreciated EF 20-25% mild mod MR
-Cardiology consult appreciated ASA Statin Coreg, IV Lasix transitioned to PO
-Cath report appreciated non-obstructive coronary artery disease
# Elevated troponin, non-ischemic myocardial injury
EKG appreciated
Chest Pain Free
Trended to peak 0.045 since trended down
# SLOANE ruled out, most likely CKD III
Cr stable baseline 1.8 - 2.0
Follow up with Nephro recommended when insurance is available
# Hypertensive Urgency/tachycardia
-cont Lasix Coreg
#type 2 DM
-outpatient a1c 9.6
-sliding scale
-CHO diet
-DM UNIFORM ROOM ATTENDANT eval appreciated
-sugars relatively well controlled at this time with minimal need for insulin correction at this time
-recommend lifestyle mgmt and Fingerstick monitoring at home.
#Occult Hematuria
no urinary symptoms, urine cx neg
outpt Urology follow up recommended when insurance is available
#DVT prophylaxis
-heparin sq
#CODE status
-full code
Medically stable for discharge home with outpatient follow up recommendations.
Total Time Preparing Discharge ___40____ minutes including examination of the patient, summary of the hospital stay, instructions for continuing care to all relevant caregivers; and preparation of discharge records, prescriptions, and referral
forms if necessary.
Anticipated Discharge: Today
Subjective/Interval History
-
Date of Service: May 22, 2024
no acute distress sitting up comfortably in bed. Denies new acute issues. overall reports feeling well. Eager to go home.
Objective Data
-
Labs:
Laboratory Results
05/22/24
06:27
WBC Pending
Hgb Pending
Hct Pending
Plt Count Pending
Sodium Pending
Potassium Pending
Chloride Pending
Carbon Dioxide Pending
BUN Pending
Creatinine Pending
Glucose Pending
Calcium Pending
Vital Signs:
Vital Signs
Temp Pulse Resp BP Pulse Ox
98.1 F 98 14 121/94 98
05/22/24 03:05 05/22/24 03:05 05/22/24 03:05 05/22/24 03:05 05/22/24 03:05
I&O
05/21/24 05/22/24 05/23/24
06:59 06:59 07:59
Intake Total 600 / 600 1260 / 1260
Output Total 2000 / 2000 300 / 300
Balance -1400 / -1400 960 / 960
[2024-05-22 07:31] LABS: Blood Urea Nitrogen 27 mg/dl (9-20); Calcium 9.6 mg/dl (8.4-10.2); Carbon Dioxide 27 mmol/L (22-30); Chloride 98 mmol/L (98-107); Estimated Creatinine Clearance 37 ml/min; Glucose 132 mg/dl (70-99); Magnesium 1.9 mg/dl (1.6-2.3); Phosphorus 4.6 mg/dl (2.5-4.5); Potassium 4.1 mmol/L (3.5-5.1); Sodium 138 mmol/L (135-145); eGFR 36.81
[2024-05-22 07:37] LABS: Glucose - Point of Care 125 mg/dl (70-99)
[2024-05-22] MEDS: COREG 3.125 MG PO ×2 (07:39→19:34)
[2024-05-22] MEDS: HEPARIN 5000 UNITS SC ×2 (07:39→19:34)
[2024-05-22] MEDS: LASIX 40 MG IV (07:40)
[2024-05-22] MEDS: NOVOLOG FLEXPEN-LOW RESISTANCE SC ×2 (07:41→14:04)
[2024-05-22] MEDS: LOW STRENGTH ASPIRIN 81 MG PO (07:41)
[2024-05-22 07:58] VITALS: BP 130/101
[2024-05-22 09:24] LABS: Iron 72 ug/dl (49-181)
[2024-05-22 09:33] LABS: Percent Saturation 22 % (20-50); Total Iron Binding Capacity 314 ug/dl (261-462)
[2024-05-22 11:22] VITALS: BP 109/77
[2024-05-22 11:50] LABS: Glucose - Point of Care 187 mg/dl (70-99)
[2024-05-22 15:39] VITALS: BP 130/76
[2024-05-22 15:50] LABS: Glucose - Point of Care 151 mg/dl (70-99)
[2024-05-22] MEDS: NOVOLOG FLEXPEN-LOW RESISTANCE 1 UNITS SC (16:04)
[2024-05-22] MEDS: LIPITOR 20 MG PO (17:16)
--- NOTE | 2024-05-22 17:22 | W.PN.CARDCBS ---
Today's Communication / Plan
-
Labs in 1 week: CBC, basic metabolic profile, proBNP
Cardiac follow-up arranged
Stable for discharge home
Impression / Plan
-
Primary Wrecker Driver: none
Assessment:
Presentation due to abnormal blood work
Acute CHF, unknown type
SLOANE, baseline renal function unknown
Elevated troponin
New diabetes type 2
OA/Joint pains
ECHO 05/20/24: EF 20 to 25%,, no evidence of LV thrombus, stage III diastolic dysfunction, dilated and hypokinetic right ventricle, biatrial dilatation, mild to moderate MR, trace AR, mild TR, PAP 41 to 46 mmHg, proximal ascending aorta mildly dilated
Left heart catheterization May 21, 2024: Codominant. Left main large. Left anterior descending with diffuse 30 to 40% stenosis proximally. Circumflex medium to large codominant vessel. OM 2 with 56% stenosis and small branch disease at a
proportion to explain his cardiomyopathy. Distal circumflex proximal to the RPDA takeoff has 2 serial 30 to 40% focal stenosis. RCA large caliber codominant vessel which is ectatic with mild diffuse atherosclerotic plaque. Right PDA with 30 to
40% mid stenosis.
Right heart catheterization May 21, 2024:
HEMODYNAMICS : (mmHg)
RA (m) : 4
RV (s/d,m) : 22/3, 6
PA (s/d, m) : 24/15, 19
PCWP (m) : 11
PA saturation: 64.2% on room air
AO saturation: 88.1% on room air
RA saturation: 61.0% on room air
Cardiac Output : 4.8 L/min
Cardiac Index : 2.47 L/min/m-2
Systemic vascular resistance: 1399 dsc^(-5)
Pulmonary vascular resistance: 1.85 velez unit
AO (s/d) : 106/70
LV (s/d) : 102/3
LVEDP : 10
Plan:
Nonischemic cardiomyopathy with acute HFrEF, new diagnosis. Initial proBNP 16,800
-2D echocardiogram today reviewed with biventricular dilatation and hypokinesis. Left ventricular systolic function severely reduced with ejection fraction estimated by volumetric assessment 25%. No left ventricular apical thrombus. Mild to
moderate mitral regurgitation. Mild tricuspid regurgitation. Estimated pulmonary artery pressure 41-46 mmHg.
-Left heart catheterization with moderate nonobstructive coronary disease out of a portion to degree of cardiomyopathy
-Right heart catheterization with normal hemodynamics/cardiac output and no evidence for pulmonary hypertension. Wedge pressure 11. LVEDP 10. PA pressures 24/15, mean 19. Right atrial pressure 4.
-Denies alcohol use; TSH normal, 2.56
-Patient has received heart failure education regarding medications, diet and monitoring.
-My concern long-term is his lack of insurance. I have strongly advised him to look into insurance options. He also knows the importance of obtaining care through her primary care physician as well as maintaining care with a engineering aide
Discharge medications:
- aspirin 81 mg daily
- Lipitor 20 mg nightly for goal LDL ideally less than 70 mg/dL. Will need repeat lipid profile in 3 months
- Coreg 3.215 mg twice daily
-Lasix 40 mg once daily
-Further optimization of goal-directed medical therapy limited by lack of insurance as well as renal insufficiency with creatinine, 2
-Repeat labs in 1 week: Basic metabolic, CBC, proBNP
-Post cath activity restrictions reviewed
-Cardiac heart failure follow-up to be arranged
New diagnosis of type 2 diabetes mellitus with hemoglobin A1c 9.3%
-Diabetic nurse practitioner consult. Diabetic education
-Goal normoglycemia
Renal insufficiency, unknown baseline creatinine
-Creatinine post cath 2, presented with a creatinine of 1.9
-Repeat labs in 1 week
-May need outpatient nephrology follow-up
Progress Note - Wrecker Driver
Subjective
Date of Service: May 22, 2024
Patient seen and examined feeling well and anxious to go home. Right wrist intact without bleeding or pain. No chest pain or pressure. Resolved shortness of breath. Resolved lower extremity edema.
Objective
Labs:
05/22/24 06:27
05/22/24 06:27
Labs
Hgb 16.1 g/dL (13.0-18.0) 05/22/24 06:27
Hct 48.7 % (39.0-52.0) 05/22/24 06:27
Plt Count 216 10^3/uL (130-400) 05/22/24 06:27
Sodium 138 mmol/L (135-145) 05/22/24 06:27
Potassium 4.1 mmol/L (3.5-5.1) 05/22/24 06:27
BUN 27 mg/dl (9-20) H 05/22/24 06:27
Creatinine 2.0 mg/dL (0.7-1.3) H 05/22/24 06:27
Glucose 132 mg/dl (70-99) H 05/22/24 06:27
Troponins
05/19/24 05/19/24 05/20/24
17:27 23:29 05:41
Troponin I 0.036 H* 0.040 H* 0.045 H*
05/20/24
12:45
Troponin I 0.042 H*
Vital Signs and I&O:
Vital Signs
Temp Pulse Resp BP Pulse Ox
97.6 F 93 18 130/76 97
05/22/24 15:39 05/22/24 15:39 05/22/24 15:39 05/22/24 15:39 05/22/24 15:39
Vital Signs
Temp Pulse Resp BP Pulse Ox
97.6 F 93 18 130/76 97
05/22/24 15:39 05/22/24 15:39 05/22/24 15:39 05/22/24 15:39 05/22/24 15:39
Intake & Output
03/09/0805/21/24 05/22/24 05/23/24
06:59 06:59 06:59 07:59
Intake Total 220 / 220 600 / 600 1260 / 1260
Output Total 1999 / 1999 300 / 300
Balance 220 / 220 -1400 / -1400 960 / 960
Physical Exam
Physical Exam
General: No acute distress, AAOX3
Heart: Regular, positive S1/S2, No murmur
Lungs: CTA b/l, negative wheezes/rales/rhonchi
Abd: Positive BS, NT/ND, neg rebound/rigidity/guarding
Ext: no edema. right radial site intact
Neuro: nonfocal
[2024-05-22 19:14] VITALS: BP 121/80
--- NOTE | 2024-05-22 19:21 | W.DCSUMMARY ---
Discharge Summary
Discharge Data
Date of Admission: 05/19/24
Date of Discharge: 05/22/24
-
Pending Results: No
Discharge Plan
-
Patient Disposition: Home (Routine Discharge)
Discharge Diagnosis/Procedures: Heart Failure with Restricted Ejection Fraction, cardiomyopathy,
cardiac catheterization noted non-obstructive coronary artery disease
renal insufficiency, Chronic Kidney Disease Stage III
Non-obstructing right kidney stone
Occult Hematuria
Diabetes
Condition: Fair
Diet: 2 Gram Sodium, Diabetic, Carb Controlled and Restrict fluids to 48 oz
Activity: As tolerated
Driving Restrictions: No driving for 24 hours
Bathing Restrictions: None
Blood Work: Please repeat CBC BMP and proBNP in 1 week, results to be forwarded to your Switchboard Manager and Primary Care provider. A script has been provided to facilitate.
Specialty Instructions: Weigh Daily- Call MD for wt gain/loss 3 lbs overnight/5 lbs in 1 week
Activity Restrictions/Additional Instructions:
Please keep your appointment with Cardiology, follow up with primary care provider in 1 week of discharge, and follow up with Urology and Nephrology in 2-4 weeks of discharge.
For Heart Failure with Reduced Ejection Fraction you've been started on:
Lasix 40 mg Daily
Coreg 3.125 mg twice a day
For non-obstructive coronary artery disease you've been started on:
Aspirin 81 mg daily
Atorvastatin 20 mg daily (also known as Lipitor, this medication is to help bring down your LDL, a type of cholesterol, to goal <70 in order to further reduce your risk of acute coronary syndrome)
A Glucose monitoring device and supplies have been prescribed as well. Ideally you should keep a log of your sugars at home, testing before meals 3 times a day and at bedtime. At minimum, please check your sugars morning and evening. Bring your
log with you in follow up to review with your primary care provider for further evaluation/treatment Diabetes.
Paper scripts have been provided for you to fill at pharmacy of your choosing.
Please take medications as prescribed/recommended and follow up with primary care provider and/or other healthcare provider involved in your care for refills and/or further adjustment to your medication regimen as necessary.
Instructions: *[facility] Heart Failure Instructions
Stand Alone Forms: DC Instructions- Cath/EP Lab
Referrals:
NONE,* [Family Provider] -
Kam Frias MD [Active] - in two to four weeks
Lorene Mendosa NP [Specified Professional Personl] - in one week (Primary Care Provider Follow up)
Maya Jaffe PA-C [Specified Professional Personl] - 05/26/24 9:00 am (You have a cardiology follow-up appointment at the [place] office. Please call with questions)
Toni Lechuga MD [Active] - in two to four weeks
Prescriptions:
New
(DME) lancets [Microlet Lancet] Misc
Qty: 130 0RF
Rx Instructions:
Pt testing 4 times a day
furosemide 40 mg Tablet
40 mg PO DAILY Qty: 30 0RF
atorvastatin 20 mg Tablet
20 mg PO QPM Qty: 30 0RF
carvedilol 3.125 mg Tablet
3.125 mg PO BID Qty: 60 0RF
aspirin 81 mg Tablet,Chewable
81 mg PO DAILY Qty: 30 0RF
(DME) Contour Next Test Strips Strip
Qty: 200 0RF
Rx Instructions:
As Directed
Continued
fluticasone propionate 50 mcg/actuation [place],Suspension
1 spray INTRANASAL DAILYPRN PRN (Reason: congestion)
ibuprofen-acetaminophen [Advil Dual Action] 125-250 mg Tablet
1 tab PO Q8HPRN PRN (Reason: mild pain/inflammation)
Discharge Orders:
Discharge Patient (As Directed); Ordered 05/22/24
Ordered By: Chad Stevens
Discharge Date and Time
Print Language: SETS[place]NA
--- NOTE | 2024-05-22 19:53 | PTCARENOTE ---
Pt. discharged, gave discharge instructions to pt., pt. ambulated out with his family.
--- NOTE | 2024-05-24 11:45 | W.HF.CON ---
Heart Failure
- LV Function
Left ventricular function study result: LV Ejection fraction </= 35%
Ejection Fraction Percentage: 20-25
- ARNI
Patient already on ARNI: No
Heart Failure ARNI Contraindication: Acute Renal Failure
- ACEI/ARB
Patient already on ACEI/ARB: No
Heart Failure ACEI/ARB Contraindication: Acute Renal Failure
- Beta [place]
Patient already on Evidence Based Beta [place]: Yes
- Mineralocorticord Receptor Antagonist
Patient already on MRA: No
Heart Failure MRA Contraindication: Acute Renal Insufficiency
- SGLT-2 Inhibitor
Patient already on SGLT-2 Inhibitor: No
Heart Failure SGLT-2 Inhibitor Contraindication: Patient Refusal
- NYHA CHF Classification
NYHA CHF Classification Level: Class III - Symptoms w/ min exertion, interferes w/ nml daily activity
- ACC/AHA Stage
ACC/AHA Stage: Stage C: Symptomatic Heart Failure
== END 2024-05-22 22:15 | disposition home or self-care (01) | DRG 291 ==
LOC: 4 WEST ACU 19:39
PROVIDERS: Physician Assistant Medical; Registered Nurse; ADMITTING PHYSICIAN Student in an Organized Health Care Education/Training Program; ATTENDING PHYSICIAN Internal Medicine; CONSULT PHYSICIAN Internal Medicine Cardiovascular Disease; EMERGENCY PHYSICIAN Emergency Medicine
DX: I13.0 Hypertensive heart and chronic kidney disease with heart failure and stage 1 through stage 4 chronic kidney disease, or unspecified chronic kidney disease (principal); I50.21 Acute systolic (congestive) heart failure; I16.1 Hypertensive emergency; E87.20 Acidosis, unspecified; N17.9 Acute kidney failure, unspecified; N18.30 Chronic kidney disease, stage 3 unspecified; E11.22 Type 2 diabetes mellitus with diabetic chronic kidney disease; I25.10 Atherosclerotic heart disease of native coronary artery without angina pectoris; I42.8 Other cardiomyopathies; I34.0 Nonrheumatic mitral (valve) insufficiency; I5A Non-ischemic myocardial injury (non-traumatic); R00.0 Tachycardia, unspecified; Z79.4 Long term (current) use of insulin
CPT/HCPCS: 71046; 76775; 76937; 80048; 80053; 80061; 81003; 81015; 82570; 82728; 82962; 83036; 83540; 83550; 83735; 83880; 84100; 84156; 84443; 84484; 85025; 85027; 87086; 93005; 93306; 93460; 96374; 97161; 97165; 99152; 99153; 99285; C1894; Q9950; Q9967

== ENCOUNTER → 2024-08-30 09:25 | Outpatient (REF) | payer OTHER, SELFPAY | LOC: RCS 09:25 | PROVIDERS: ATTENDING PHYSICIAN Physician Assistant | DX: I50.20 Unspecified systolic (congestive) heart failure (principal); I42.8 Other cardiomyopathies | CPT/HCPCS: 93306 ==